=== PATIENT | female | born 1985 | race African-American/Black ===

== ENCOUNTER 2017-10-01 11:35 | Emergency (ER) | payer BC ==
[~2017-10-01] VITALS: Ht 162.6 cm; Wt 92.1 kg
[2017-10-01] MEDS ORDERED: MOBIC15 MG PO (12:18)
[2017-10-01] MEDS ORDERED: OMEPRAZOLE10 MG (12:18)
[2017-10-01] MEDS ORDERED: CLARITIN10 MG PO (12:19)
[2017-10-01 12:39] LABS: HEMATOCRIT 37.5 % (37.0-47.0); HEMOGLOBIN 11.8 gm/dL (12.0-15.0); MCH 21.8 pg (26.0-34.0); MCHC 31.4 g/dL (28.0-37.0); MCV 69.5 fL (80.0-100.0); PLATELET COUNT 217 thou/uL (150-400); RDW 14.9 % (10.5-14.5); WBC 6.3 thou/uL (4.0-11.0)
[2017-10-01 12:41] LABS: MANUAL DIFF YES
[2017-10-01 12:46] LABS: CALCIUM 8.9 mg/dL (8.5-10.1); CREATININE 0.8 mg/dL (0.6-1.0); POTASSIUM 3.7 mmol/L (3.5-5.1)
[2017-10-01 13:01] LABS: ABSOLUTE NEUTROPHILS 3.5 thou/uL (1.4-8.2); HYPOCHROMASIA 2+; MICROCYTES 2+; TOTAL CELL COUNT 100
[2017-10-01 13:02] LABS: ANISOCYTOSIS 1+; OVALOCYTES 1+
[2017-10-01 13:15] VITALS: BP 117/59
[2017-10-01] MEDS ORDERED: COMPAZINE10 MG PO (13:27)
== END 2017-10-01 13:39 | disposition home or self-care (01) ==
LOC: ER 11:35
PROVIDERS: Physician Assistant
DX: R51 Headache (principal); F10.99 Alcohol use, unspecified with unspecified alcohol-induced disorder